=== PATIENT | male | born 1950 | race African-American/Black ===

== ENCOUNTER 2025-08-10 14:40 | Emergency (ER) | payer OTHER ==
[~2025-08-10] VITALS: Ht 165.1 cm; Wt 95.0 kg
[2025-08-10 14:47] VITALS: O2SAT 98
[2025-08-10 15:14] LABS: HEMATOCRIT. 46.0 % (42.0-52.0); HEMOGLOBIN. 15.5 g/dL (14.0-18.0); MEAN PLATELET VOLUME 8.5 fl (7.4-10.4); PLATELET 162 x1000/uL (130-400); RED BLOOD CELL COUNT 4.81 mill/uL (4.7-6.1); RED CELL DISTRIBUTION WIDTH 13.7 % (11.6-14.6)
[2025-08-10 15:28] LABS: INR 1.0
[2025-08-10 15:29] LABS: CREATININE 1.1 mg/dL (0.6-1.3); ETHANOL BLOOD < 10 mg/dL (<10); UREA NITROGEN BLOOD 13 mg/dL (9-23)
[2025-08-10 15:30] LABS: PROTEIN TOTAL 7.3 g/dL (6.0-8.3); TROPONIN I HIGH SENSITIVITY 21 ng/L (3.0-53)
[2025-08-10 15:31] LABS: ASPARTATE AMINOTRANSFERASE 31 IU/L (<34); BILIRUBIN DIRECT < 0.1 mg/dL (<=3.0); BILIRUBIN TOTAL 0.4 mg/dL (0.1-1.0)
[2025-08-10] MEDS: HYDROCODONE/ACETAMINOPHEN 5/325MG TABLET PO ONE (15:33)
[2025-08-10] MEDS: ONDANSETRON 4MG ODT PO ONE (15:33)
[2025-08-10 15:43] LABS: CLARITY URINE CLEAR (CLEAR); COLOR URINE YELLOW (YELLOW); GLUCOSE URINE 3+ (NEGATIVE); KETONES URINE NEGATIVE (NEGATIVE); LEUKOCYTE ESTERASE URINE NEGATIVE (NEGATIVE); NITRITE URINE NEGATIVE (NEGATIVE); OCCULT BLOOD URINE NEGATIVE (NEGATIVE); PH URINE 5.0 (4.5-8.0); PROTEIN URINE TRACE (NEGATIVE); SPECIFIC GRAVITY URINE 1.026 (1.005-1.030); UROBILINOGEN URINE 0.2 E.U./dL (0.2-1.0)
[2025-08-10 15:54] LABS: BAND% 1.0 % (1.0-6.0); EOSINOPHILS % MANUAL 8.0 % (0.0-5.0); LYMPHOCYTES % MANUAL 17.0 % (20.0-50.0); MONOCYTES % MANUAL 7.0 % (2.0-8.0); NEUTROPHILS % MANUAL 67.0 % (45.0-75.0); PLATELET ESTIMATE NORMAL
[2025-08-10 16:11] LABS: *AMPHETAMINES SCREEN URINE NEGATIVE (NEGATIVE); *BARBITURATES SCREEN URINE NEGATIVE (NEGATIVE); *BENZODIAZEPINES SCREEN URINE NEGATIVE (NEGATIVE); *COCAINE SCREEN URINE NEGATIVE (NEGATIVE); METHADONE URINE SCREEN NEGATIVE (NEGATIVE); OPIATES URINE SCREEN NEGATIVE (NEGATIVE)
[2025-08-10 16:12] LABS: CANNABINOID URINE SCREEN NEGATIVE (NEGATIVE); ECSTASY MDMA SCREEN URINE NEGATIVE (NEGATIVE); PHENCYCLIDINE URINE SCREEN NEGATIVE (NEGATIVE)
[2025-08-10 17:07] LABS: BACTERIA URINE NONE SEEN; RBC URINE NONE SEEN /hpf (0-2); SQUAMOUS EPITHELIAL CELL URINE NONE SEEN /lpf (RARE/1+); WBC URINE NONE SEEN /hpf (0-2)
[2025-08-10 17:11] VITALS: BP 164/83; PULSE 91; RESP 18; TEMP 36.7; O2SAT 97
[2025-08-10 18:27] LABS: TROPONIN I HIGH SENSITIVITY 28 ng/L (3.0-53)
[2025-08-10] MEDS ORDERED: TOPUD PO (18:50)
[2025-08-10] MEDS ORDERED: LIDO-53 TP (18:50)
[2025-08-10] MEDS ORDERED: METH-653 MT (18:50)
[2025-08-10] MEDS: IBUPROFEN 400MG TABLET PO ONE (19:09)
== END 2025-08-10 19:16 | disposition home or self-care (01) ==
LOC: ER 14:40
DX: S29.011A Strain of muscle and tendon of front wall of thorax, initial encounter (principal); S20.219A Contusion of unspecified front wall of thorax, initial encounter; I11.0 Hypertensive heart disease with heart failure; I50.9 Heart failure, unspecified; Z79.899 Other long term (current) drug therapy; Z86.73 Personal history of transient ischemic attack (TIA), and cerebral infarction without residual deficits; V89.2XXA Person injured in unspecified motor-vehicle accident, traffic, initial encounter; Y92.410 Unspecified street and highway as the place of occurrence of the external cause; Y93.89 Activity, other specified; Y99.8 Other external cause status
CPT/HCPCS: 80076; 80305; 80048; 81003; 80320; 83880; 83690; 83735; 85025; 85610; 85730; 84484; 36415; 71045; 70450; 93005; 99285; Q0162; G0480